=== PATIENT | female | born 1955 | race Caucasian/White ===

== ENCOUNTER 2021-05-06 16:30 | Emergency (ER) | payer MEDICARE, SELFPAY ==
--- NOTE | 2021-05-06 16:33 | ED.URI ---
HPI - URI/Sore Throat General Chief Complaint: Upper Respiratory Infection Stated Complaint: Ear Pain/ Sore Throat Time Seen by Provider: 05/06/21 16:34 Source: patient and RN notes reviewed History of Present Illness HPI Narrative: Patient is a 65-year-old female who presents the urgent care with complaints of right ear pain and sore throat. Patient states that it started throbbing last night and she became hoarse. Patient states that then resolved for couple hours and she has not felt the pain since then. Patient states that it drained overnight and seems that it cleared itself up . Patient denies of any fevers or other upper respiratory complaints. Patient did not take anything [id number] for her symptoms. No other acute complaints. No acute distress noted. Patient aware of the plan of care. Some parts of this dictation were generated by voice recognition software and may contain typographical and/or grammatical inaccuracies. Related Data Home Medications Medication Instructions Recorded Confirmed apixaban [Eliquis] 10 mg PO DAILY 05/06/21 05/06/21 hydrochlorothiazide 25 mg PO DAILY 05/06/21 05/06/21 letrozole 2.5 mg PO DAILY 05/06/21 05/06/21 montelukast 10 mg PO DAILY 05/06/21 05/06/21 Review of Systems Review of Systems: CONSTITUTIONAL: Denies fever, chills, or sweats. EYES: Denies visual changes, redness, or discharge. ENT: Denies rhinorrhea, congestion, sore throat, or otalgia. Reports of drainage from the right ear CARDIOVASCULAR: Denies chest pain, palpitations, or edema. RESPIRATORY: Denies cough or dyspnea. GASTROINTESTINAL: Denies abdominal pain, nausea, vomiting, or diarrhea. GENITOURINARY: Denies dysuria or hematuria. SKIN: Denies rash or itching. MUSCULOSKELETAL: Denies back pain, joint pain, or myalgia. NEUROLOGIC: Denies headache, numbness, or weakness. All other systems reviewed are negative, except as documented in HPI. PMFSH Comments At the time of my signature, I reviewed and agree with the nursing past medical, surgical, social, and family history. There is no relevant family history pertinent to the patient complaint. Exam Narrative: GENERAL: This is a well-nourished, well-developed patient, in no apparent distress. HEAD: normocephalic, atraumatic. EYES: PERRL. Sclera clear/white. Vision is grossly intact. EARS: External ears normal, auditory canals clear and without drainage, cerumen noted bilaterally without impaction. TMs normal without perforation. Hearing grossly intact. NOSE: External nose normal with no obvious nasal discharge, nares without redness, no rhinorrhea. THROAT: Mucous membranes moist, posterior pharynx clear. Moderate postnasal drainage NECK: Neck supple, non-tender without lymphadenopathy CARDIOVASCULAR: Regular rate and rhythm without murmurs, gallops, or rubs. RESPIRATORY: Clear to auscultation. Breath sounds equal bilaterally. No wheezes, rales, or rhonchi. SKIN: warm, intact with no suspicious lesions or rash, good texture and turgor. NEURO: awake, alert, and oriented to person, place and time. There were no obvious focal neurologic abnormalities. EXTREMITIES: No clubbing, cyanosis, or edema. Course Vital Signs Vital signs: Vital Signs Temperature 99.2 F 05/06/21 16:44 Pulse Rate 106 H 05/06/21 16:44 Respiratory Rate 20 05/06/21 16:44 Blood Pressure 152/76 H 05/06/21 16:44 Pulse Oximetry 97 05/06/21 16:44 Temperature 99.2 F 05/06/21 16:44 Pulse Rate 106 H 05/06/21 16:44 Respiratory Rate 20 05/06/21 16:44 Blood Pressure 152/76 H 05/06/21 16:44 Pulse Oximetry 97 05/06/21 16:44 Reviewed-patient is informed that they may have pre-hypertension or hypertension based on a blood pressure reading in the department. I recommend the patient call the primary care provider listed on their discharge instructions or a physician of their choice this week to arrange follow-up for further evaluation of possible pre-hypertension or hypertension.
[2021-05-06 16:44] VITALS: BP 152/76; PULSE 106; RESP 20; TEMP 37.3; O2SAT 97
[2021-05-06 16:58] VITALS: BP 152/76; PULSE 106; RESP 20; TEMP 37.3; O2SAT 97
== END 2021-05-06 17:04 | disposition home or self-care (01) ==
PROVIDERS: Emergency Provider Nurse Practitioner Family; PCP Internal Medicine
DX: H92.11 Otorrhea, right ear (principal); Z79.01 Long term (current) use of anticoagulants
CPT/HCPCS: 99211; G0463